=== PATIENT | male | born 1990 | race Caucasian/White ===

== ENCOUNTER 2016-03-08 07:50 | Emergency (ER) | payer OTHER ==
[~2016-03-08] VITALS: Ht 188 cm; Wt 61.5 kg
[~2016-03-08 07:50] MED LIST: LEXA10TA PO; REME15TA PO; ZYPR15TA PO
[2016-03-08 07:52] VITALS: BP 158/65; PULSE 82; RESP 20; TEMP 98; O2SAT 97
[2016-03-08] MEDS ORDERED: RESP: ALBUTEROL 2.5 MG/3 ML NEB (SCH) INH ONE (08:45)
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
[2016-05-17] MEDS ORDERED: LEXA10TA PO (12:18)
[2016-05-17] MEDS ORDERED: ALBUAER3 INH (12:19)
[2016-06-01] MEDS ORDERED: LEXA10TA PO (15:21)
[2016-06-02] MEDS ORDERED: REME15TA PO (08:40)
[2016-06-02] MEDS ORDERED: PENI250T59 PO (08:50)
== END 2016-03-08 11:16 | disposition home or self-care (01) ==
LOC: NEPC 07:50
DX: J20.9 Acute bronchitis, unspecified (principal); R06.02 Shortness of breath; F17.210 Nicotine dependence, cigarettes, uncomplicated; I45.10 Unspecified right bundle-branch block
CPT/HCPCS: 71010; 87804; 94664; 99283; J7613

== ENCOUNTER 2016-03-30 18:04 | Emergency (ER) | payer SELFPAY ==
[~2016-03-30] VITALS: Ht 188 cm; Wt 57.0 kg
[2016-03-30 18:14] VITALS: BP 107/74; PULSE 109; RESP 18; TEMP 98.3; O2SAT 98
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
[2016-03-30] MEDS ORDERED: CEPH-460 PO (19:53)
[2016-03-30] MEDS ORDERED: BACT800T5 PO (19:53)
[2016-03-30] MEDS ORDERED: LIDOCAINE 1%/EPINEPHrine 1:100,000 SOLN 20 ML VIAL INFIL ONE (20:00)
[2016-03-30] MEDS ORDERED: DICL75TA PO (20:20)
[2016-05-17] MEDS ORDERED: LEXA10TA PO (12:18)
[2016-05-17] MEDS ORDERED: ALBUAER3 INH (12:19)
[2016-06-01] MEDS ORDERED: LEXA10TA PO (15:21)
[2016-06-02] MEDS ORDERED: REME15TA PO (08:40)
[2016-06-02] MEDS ORDERED: PENI250T59 PO (08:50)
== END 2016-03-30 20:29 | disposition home or self-care (01) ==
LOC: PHED 18:04 → PHEFT 20:29
DX: L02.413 Cutaneous abscess of right upper limb (principal); F17.210 Nicotine dependence, cigarettes, uncomplicated; F11.90 Opioid use, unspecified, uncomplicated
CPT/HCPCS: 10061; 87070; 87205

== ENCOUNTER → 2016-10-26 | Outpatient (CLI) | payer MEDICARE, MEDICAID ==
[~2016-10-26] MED LIST changes: +ALBUAER3 INH; +ALLE10TA PO; +AMOX500T PO; -ZYPR15TA PO
[2016-10-26 10:58] LABS: BLOOD GAS CARBOXYHEMOGLOBIN 7.5 % (0-4); BLOOD GAS HCO3 25 mmol/L (22-26); BLOOD GAS O2 HGB SATURATION 90 % (90-100); BLOOD GAS OXYGEN CONTENT 17.2 Vol % (12.0-20.0); BLOOD GAS PCO2 37 mmHg (38-42); BLOOD GAS PO2 89 mmHg (61-120); BLOOD GAS TOTAL HGB 13.6 G/DL (12.0-16.0); TEMP CORR TO 98.6
[2016-10-26 10:59] LABS: CRITICAL VALUE YES; DRAW SITE RT RADIAL; FIO2 21 %; NUMBER OF ARTERIAL PUNCTURES 1; STAT NO; ULNAR PULSE PRESENT
--- NOTE | 2016-10-27 10:27 | RSPPFT ---
DATE OF PROCEDURE: 10/26/16 COMMENTS: Spirometry with FVC of 2.9, FEV1 of 1.7, FEV1/FVC ratio at 58%. A positive and significant response to acutely inhaled bronchodilator noted. Slow vital capacity is 44%. TLC is 67%. Diffusion capacity is 48% of predicted and normal when related to alveolar volume. IMPRESSION: 1. Moderately severe airways obstruction. 2. Associated restrictive component. 3. Reduced diffusion capacity but normal when related to alveolar volume. 4. Adequate oxygenation and alveolar ventilation.
== END ==
LOC: HRSP 10:04
PROVIDERS: ATTEND Internal Medicine Sleep Medicine
DX: R06.00 Dyspnea, unspecified (principal)
CPT/HCPCS: 36600; 82805; 94060; 94726; 94729

== ENCOUNTER 2016-11-26 17:51 | Observation (INO) | payer MEDICARE, OTHER ==
[~2016-11-26] VITALS: Ht 188 cm; Wt 62.0 kg
[2016-11-26 18:11] VITALS: BP 110/66; PULSE 97; RESP 18; O2SAT 99
[2016-11-26 18:23] VITALS: BP 110/66; PULSE 98; RESP 18; O2SAT 99
[2016-11-26] MEDS ORDERED: PEG (High)/E-LYTE SOLN 4000 ML BTL PO ONE (19:00)
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
[2016-11-26] MEDS ORDERED: SENNOSIDES 8.6 MG TAB PO PRN (20:15)
[2016-11-26] MEDS ORDERED: BISACODYL 10 MG SUPP RECTAL PRN (20:15)
[2016-11-26] MEDS ORDERED: MAGNESIUM HYDROXIDE SUSP 30 ML CUP PO PRN (20:15)
[2016-11-26] MEDS ORDERED: LACTULOSE SYRUP 20 GM/30 ML CUP PO PRN (20:15)
[2016-11-26] MEDS ORDERED: NALOXONE HCL 0.4 MG/ML AMP IV PUSH PRN (20:15)
[2016-11-26] MEDS ORDERED: ACETAMINOPHEN 325 MG TAB PO PRN (20:15)
[2016-11-26] MEDS ORDERED: SODIUM CHLORIDE 0.9% FLUSH 10 ML FLUSH IV FLUSH PRN (20:15)
[2016-11-26] MEDS: SODIUM CHLOR 0.9% 1000 ML INJ 1,000 ML IV SCH (20:30)
[2016-11-26] MEDS: DOCUSATE SODIUM 50 MG/SENNA 8.6 MG TAB PO SCH (20:55)
[2016-11-26] MEDS: SODIUM CHLORIDE 0.9% FLUSH 10 ML FLUSH IV FLUSH SCH (20:55)
[2016-11-26 23:14] VITALS: BP 108/66; PULSE 75; RESP 16; TEMP 98.3; O2SAT 97
[2016-11-27] MEDS ORDERED: LORazepam 2 MG/ML VIAL IM ONE (02:30)
[2016-11-27 04:21] VITALS: BP 114/68; PULSE 75; RESP 16; TEMP 97.2; O2SAT 100
[2016-11-27] MEDS: SODIUM CHLOR 0.9% 1000 ML INJ 1,000 ML IV SCH (05:48)
[2016-11-27] MEDS: DOCUSATE SODIUM 50 MG/SENNA 8.6 MG TAB PO SCH (07:54)
[2016-11-27] MEDS: SODIUM CHLORIDE 0.9% FLUSH 10 ML FLUSH IV FLUSH SCH (07:54)
[2016-11-27 08:00] VITALS: BP 99/61; PULSE 67; RESP 16; TEMP 97.7; O2SAT 99
[2016-11-27] MEDS ORDERED: INFLUENZA VIRUS VACCINE (QUADRIVALENT) 0.5 ML SYR IM ONE (09:00)
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
[2016-11-27] MEDS ORDERED: ALPRAZolam 0.5 MG TAB PO ONE (10:30)
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
[2016-11-27 12:00] VITALS: BP 104/63; PULSE 83; RESP 18; TEMP 97.7; O2SAT 98
--- NOTE | 2016-11-27 14:34 | EKG ---
Date Performed: 11/27/2016 Time Performed: 11:39:48 PTAGE: 26 years EKG: Sinus rhythm WITH SINUS ARRHYTHMIA INCOMPLETE RIGHT BUNDLE BRANCH BLOCK POSSIBLE RIGHT VENTRICULAR HYPERTROPHY AB NORMAL ECG No significant change from prior electrocardiogram. PREVIOUS TRACING : 09/21/2012 11.46 DOCTOR: Hill Herrera Interpretating Date/Time 11/29/2016 10:24:48
== END 2016-11-27 13:43 | disposition home or self-care (01) ==
LOC: NEDAMB 17:51 → NEDA 20:04 → NEPGCP 21:59
PROVIDERS: ADMIT Internal Medicine; ATTEND Internal Medicine
DX: Z03.6 Encounter for observation for suspected toxic effect from ingested substance ruled out (principal); I45.10 Unspecified right bundle-branch block; I49.8 Other specified cardiac arrhythmias; R94.31 Abnormal electrocardiogram [ECG] [EKG]; R45.1 Restlessness and agitation; F32.9 Major depressive disorder, single episode, unspecified; F41.9 Anxiety disorder, unspecified; F90.9 Attention-deficit hyperactivity disorder, unspecified type; F17.200 Nicotine dependence, unspecified, uncomplicated; Z86.73 Personal history of transient ischemic attack (TIA), and cerebral infarction without residual deficits; Z79.899 Other long term (current) drug therapy
CPT/HCPCS: 74000; 93005; 96372; G0378; J2060

== ENCOUNTER 2017-12-23 15:08 | Inpatient (IN) ==
[2017-12-23] MEDS ORDERED: Morphine Inj 4 MG/ML Vial IV.PUSH ONE (16:06)
[2017-12-23] MEDS ORDERED: Lidocaine 1%/Epinephrine 1:100,000 Inj 20 ML Vial INFILTRATN ONE (16:06)
[2017-12-23] MEDS ORDERED: Vancomycin Inj 1,000 MG in Sodium Chlor 0.9% Inj 250 ML IV.SIG ONE (16:06)
[2017-12-23] MEDS ORDERED: Sod Chloride 0.9% Inj 1,000 ML IV.SIG ONE ×2 (16:10)
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
[2017-12-23 18:05] LABS: Baso % (Auto) 0.2 % (0.0-2.0); Eos # (Auto) 0.1 th/mm3 (0.0-0.4); Eos % (Auto) 0.5 % (0.0-4.0); Hematocrit 35.4 % (39.0-51.0); Hemoglobin 12.3 gm/dL (13.0-17.0); Lymph # (Auto) 1.2 th/mm3 (1.0-4.8); Lymph % (Auto) 6.5 % (9.0-44.0); Mean Corpuscular HGB Conc 34.9 % (32.0-36.0); Mean Corpuscular Volume 83.1 fL (80.0-100.0); Mean Platelet Volume 9.6 fL (7.0-11.0); Mono # (Auto) 1.2 th/mm3 (0.0-0.9); Mono % (Auto) 6.2 % (0.0-8.0); Neut # (Auto) 16.5 th/mm3 (1.8-7.7); Neut % (Auto) 86.6 % (16.0-70.0); Platelet Count 246 th/mm3 (150-450); Red Blood Count 4.26 mil/mm3 (4.50-5.90); White Blood Count 19.1 th/mm3 (4.0-11.0)
[2017-12-23 18:13] LABS: Activated Partial Thrombo Time 38.9 sec (23.4-31.7); INR 1.3 Ratio; Prothrombin Time 12.7 sec (9.8-11.6)
[2017-12-23 18:18] LABS: Albumin 2.9 g/dL (3.4-5.0); Anion Gap 7 meq/L (5-15); Aspartate Aminotransferase 23 U/L (15-37); Blood Urea Nitrogen 8 mg/dL (7-18); Calcium 8.5 mg/dL (8.5-10.1); Carbon Dioxide 31.9 meq/L (21.0-32.0); Chloride 95 meq/L (98-107); Glomerular Filtration Rate Greater Than 89 mL/min (>89); Glucose,Random 97 mg/dL (74-106); Magnesium 1.9 mg/dL (1.5-2.5); Potassium 3.6 meq/L (3.5-5.1); Sodium 134 meq/L (136-145)
[2017-12-23 18:19] LABS: Alanine Aminotransferase 22 U/L (12-78)
[2017-12-23 18:21] LABS: Alkaline Phosphatase 101 U/L (45-117); Total Protein 7.7 g/dL (6.4-8.2)
[2017-12-23] MEDS ORDERED: Vancomycin Consult Pharmacy OTHER PRN (20:33)
[2017-12-23] MEDS ORDERED: Acetaminophen 325 MG Tablet PO PRN (20:34)
[2017-12-23] MEDS ORDERED: Bisacodyl 10 MG Supp RECTAL PRN (20:34)
[2017-12-23] MEDS: Sod Chloride 0.9% Inj 1,000 ML IV.CONT SCH (20:45)
[2017-12-23] MEDS ORDERED: Senna/Docusate Sodium 8.6/50 MG Tablet PO SCH (21:00)
[2017-12-24] MEDS ORDERED: Vancomycin Inj 1,000 MG in Sodium Chlor 0.9% Inj 250 ML IV.SIG SCH (01:00)
[2017-12-24] MEDS: Sod Chloride 0.9% Inj 1,000 ML IV.CONT SCH (06:07)
[2017-12-24 08:17] VITALS: BP 99/53; PULSE 75; RESP 13; TEMP 97.5; O2SAT 96
== END 2017-12-24 09:03 | disposition left against medical advice (07) ==
LOC: NEPD 15:08 → NEDA 18:51 → N07 22:05
PROVIDERS: ADMIT Family Medicine; ATTEND Family Medicine